=== PATIENT | male | born 1945 | race Caucasian/White ===

== ENCOUNTER 2019-07-21 09:13 | Emergency (ER) | payer MEDICARE ==
[~2019-07-21] VITALS: Ht 182.9 cm; Wt 99.8 kg
[2019-07-21 09:24] VITALS: BP_SYST 175
[2019-07-21] MEDS ORDERED: hydrALAZINE HCL 20 MG/ML VIAL IVP ONE (09:30)
--- NOTE | 2019-07-21 09:30 | NUR ---
pt brought by ambulance with IV already in place R wrist. Flushing well and patent
--- NOTE | 2019-07-21 09:30 | NUR ---
Patient to ER bed 1 to gown for evaluation. Side rails up.
--- NOTE | 2019-07-21 09:36 | NUR ---
JACQUELIN Ryan at bedside examining patient.
--- NOTE | 2019-07-21 09:40 | NUR ---
Patient transported to radiology via gurney, accompanied by director radio news.
--- NOTE | 2019-07-21 09:52 | NUR ---
pt currently getting a CXR done
--- NOTE | 2019-07-21 09:54 | NUR ---
pt returned from radiology.
--- NOTE | 2019-07-21 09:55 | NUR ---
pt getting labs drawn at the bedside.
[2019-07-21 10:22] LABS: BASOPHILS % (AUTO) 0.2 % (0.0-2.0); EOSINOPHILS % (AUTO) 0.2 % (0.0-4.0); HEMATOCRIT 48.6 % (36-54); HEMOGLOBIN 16.7 g/dL (14.0-18.0); LYMPHOCYTES # (AUTO) 0.6 K/uL (1.0-5.5); LYMPHOCYTES % (AUTO) 7.4 % (20.5-51.5); MEAN CORPUSCULAR HEMOGLOBIN 32 pg (27-31); MEAN CORPUSCULAR HGB CONC 34 % (32-36); MEAN CORPUSCULAR VOLUME 92 fL (79.0-98.0); MONOCYTES # (AUTO) 0.7 K/uL (0.0-1.0); MONOCYTES % (AUTO) 7.6 % (1.7-9.3); NEUTROPHILS # (AUTO) 7.4 K/uL (1.8-7.7); NEUTROPHILS % (AUTO) 84.6 % (40.0-70.0); PLATELET COUNT (AUTO) 180 K/uL (130-430); RED BLOOD CELL COUNT(AUTO) 5.26 MIL/uL (4.2-6.2); RED CELL DISTRIBUTION WIDTH 13.4 % (9.0-15.0); WHITE BLOOD COUNT (AUTO) 8.7 K/uL (4.8-10.8)
[2019-07-21 10:33] LABS: ANION GAP 8 (5-15); CALCIUM 9.3 mg/dL (8.4-11.0); CHLORIDE 102 mmol/L (98-107); CREATININE 0.79 mg/dL (0.55-1.30); GLUCOSE 100 mg/dL (70-99); POTASSIUM 3.6 mmol/L (3.5-5.1); SODIUM SERUM 136 mmol/L (136-145); UREA NITROGEN, BLOOD 16 mg/dL (8-21)
[2019-07-21 10:36] LABS: PROTHROMBIN TIME 10.2 SECS (9.5-12.5)
[2019-07-21 10:38] LABS: ALANINE AMINOTRANSFERASE 31 U/L (12-78); ALBUMIN 3.8 g/dL (3.4-4.8); ASPARTATE AMINOTRANSFERASE 19 U/L (10-37); TOTAL BILIRUBIN 1.3 mg/dL (0.0-1.0)
--- NOTE | 2019-07-21 11:00 | NUR ---
URINE COLLECTED FROM IN AND OUT CATH. SENT TO LAB
[2019-07-21 11:12] LABS: BLOOD, URINE 3+ (NEGATIVE); CLARITY/URINE CLEAR (CLEAR); COLOR,URINE ORANGE (YELLOW); GLUCOSE,URINE NEGATIVE (NEGATIVE); KETONES,URINE 2+ (NEGATIVE); LEUKOCYTE ESTERASE ,URINE NEGATIVE (NEGATIVE); NITRITE, URINE NEGATIVE (NEGATIVE); PH,URINE 6.5 (5.0-8.0); PROTEIN URINE 1+ (NEGATIVE)
[2019-07-21] MEDS ORDERED: cloNIDine HCL 0.1 MG TABLET PO ONE (11:15)
[2019-07-21 11:35] LABS: BILIRUBIN,URINE NEGATIVE (NEGATIVE)
[2019-07-21 11:39] LABS: RBC,URINE >100 /HPF (0-3)
[2019-07-21 11:40] LABS: BACTERIA,URINE MODERATE /HPF (None Seen); MUCUS,URINE 1+ /LPF (None Seen); WBC,URINE 0-3 /HPF (0-3)
--- NOTE | 2019-07-21 12:20 | NUR ---
JOSSUE MARTINEZ FROM [facility] CALLED: PT ALS to [facility] ER ACCEPTING MD: DR. Kristy MCDANIELS ETA: 1310 [facility]
--- NOTE | 2019-07-21 12:44 | NUR ---
Patient to be transferred to [facility]. Is being transferred due to higher level of care. Receiving facility has accepting physician and available space. ER physician has signed transfer form. Patient or responsible alliance party has agreed to transfer and signed form. Patient belongings inventoried and will be sent with patient. Copy of nursing notes, lab reports, EKG, Physicians Orders and X-rays to be sent with patient. Report called to CORDELL at receiving facility. Receiving physician is DR MCDANIELS. [facility] service has been called for transfer. ETA is 1310.
[2019-07-21 13:07] VITALS: BP_SYST 145
--- NOTE | 2019-07-21 13:07 | NUR ---
AMBULANCE COMPANY HERE TO TRANSFER PT TO [facility]
== END 2019-07-21 13:07 | disposition short-term general hospital (02) ==
LOC: SED 09:13
DX: R41.82 Altered mental status, unspecified (principal); I10 Essential (primary) hypertension
CPT/HCPCS: 36415; 70450; 71045; 80053; 81000; 83605; 84484; 85025; 85610; 85730; 87040; 87086; 96374; 99285; J0360